=== PATIENT | female | born 1965 | race American Indian/Alaskan Native ===

== ENCOUNTER 2021-01-22 10:48 | Outpatient (CLI) | payer OTHER ==
--- NOTE | 2021-01-22 12:29 | Ultrasound Report ---
LIMITED RUQ ABDOMINAL ULTRASOUND INDICATION: ABNORMAL RESULTS OF LIVER FUNCTION STUDIES. COMPARISON: No relevant prior imaging study available. FINDINGS: Pancreas: Visualized portions show no significant abnormality. Abdominal Aorta: No significant abnormality. IVC: No significant abnormality. Liver: The liver measures 16.5 cm in length. The liver is mildly enlarged but no obvious parenchymal disease or focal liver lesion.. Normal hepatopedal blood flow in the main portal vein. Gallbladder: Cholecystectomy. Bile ducts: No significant abnormality. Common bile duct measures 7 mm. Right kidney: No significant abnormality visualized. Free fluid: None. Additional Findings: None. IMPRESSION: Mild hepatomegaly, otherwise, unremarkable exam. Cholecystectomy.. Signer Name: Ignacio Figueroa Jr, MD Signed: 01/22/2021 12:24 PM Workstation Name: [id number]
== END 2021-01-22 10:49 | disposition home or self-care (01) ==
LOC: SPVWC 10:48
PROVIDERS: ATTEND Family Medicine
DX: R16.0 Hepatomegaly, not elsewhere classified (principal); Z90.49 Acquired absence of other specified parts of digestive tract
CPT/HCPCS: 76705